=== PATIENT | female | born 1995 | race Caucasian/White ===

== ENCOUNTER 2017-04-14 16:57 | Emergency (ER) | payer SELFPAY ==
[~2017-04-14] VITALS: Ht 160 cm; Wt 101.0 kg
[~2017-04-14 16:57] MED LIST: AUGM875T PO; IBUP800T23 PO; OCUF0.3D OD
[2017-04-14 17:00] VITALS: BP 136/70; PULSE 110; RESP 18; TEMP 98.6; O2SAT 97
[2017-04-14] MEDS ORDERED: AMOX500C PO (18:06)
--- NOTE | 2017-04-14 18:07 | PD ---
HPI Chief Complaint: ENT Complaint Time Seen by Provider: 18:00 Travel History International Travel<30 days: No Contact w/Intl Traveler<30days: No Traveled to known affect area: No History of Present Illness HPI 21-year-old female presents emergency department for evaluation of left ear pain 3 weeks. Patient reports associated sore throat and nasal congestion. She denies headache, fever or chills. She reports previous history of ear infections this child. Symptom severity is moderate. No aggravating or alleviating factors. Pain scale 5/10 PFSH Past Medical History Hx Anticoagulant Therapy: No Heart Rhythm Problems: Yes (murmur) Cardiovascular Problems: No Chemotherapy: No Cerebrovascular Accident: No Diabetes: No Diminished Hearing: No Respiratory: No Immunizations Current: No Influenza Vaccination: No ?: Not LMP: IRREGULAR/ 2 MONTHS AGO Past Surgical History Surgical History: No Previous Surgery Hysterectomy: No Oral Surgery: Yes (wisdom teeth removed) Social History Alcohol Use: No Tobacco Use: Yes Substance Use: No Allergies-Medications (Allergen,Severity, Reaction): Coded Allergies: No Known Allergies (Unverified , 04/14/17) Reported Meds & Prescriptions Reported Meds & Active Scripts Active No Active Prescriptions or Reported Medications Review of Systems Except as stated in HPI: all other systems reviewed are Neg Physical Exam Narrative GENERAL: Well-nourished, well-developed patient. SKIN: Focused skin assessment warm/dry. HEAD: Normocephalic. EYES: No scleral icterus. No injection or drainage. EARS: Left TM erythema, bulging, loss of landmarks. Canal is without swelling, erythema or exudate. No perforation. NECK: Supple, trachea midline. No JVD or lymphadenopathy. No meningismus THROAT: Posterior pharyngeal erythema. Mild tonsillar swelling without exudate. Uvula is midline. CARDIOVASCULAR: Regular rate and rhythm without murmurs, gallops, or rubs. RESPIRATORY: Breath sounds equal bilaterally. No accessory muscle use. GASTROINTESTINAL: Abdomen soft, non-tender, nondistended. MUSCULOSKELETAL: No cyanosis, or edema. BACK: Nontender without obvious deformity. No CVA tenderness. Data Data Last Documented VS Vital Signs Date Time Temp Pulse Resp B/P (MAP) Pulse Ox O2 Delivery O2 Flow Rate FiO2 04/14/17 17:00 98.6 110 18 136/70 (92) 97 MDM Medical Decision Making Medical Screen Exam Complete: Yes Emergency Medical Condition: Yes Differential Diagnosis Otitis media, tonsillitis, URI Narrative Course 21-year-old female with chief complaint of left ear pain 3 weeks. Patient also has some subjective URI type symptoms. On exam patient is noted to have a left TM erythema, bulging, loss of landmarks. Patient be treated for acute otitis media. Diagnosis Primary Impression: Otitis media Qualified Codes: H66.90 - Otitis media, unspecified, unspecified ear Referrals: [facility] Additional Instructions: Take the antibiotics as prescribed. Stay well hydrated by drinking plenty of fluids. Take [id number] Motrin or Tylenol as needed for pain. Follow-up the primary doctor. Scripts Amoxicillin (Amoxicillin) 500 Mg Cap 500 MG PO TID for Infection, #30 CAP 0 Refills Prov: Morena Samuels 04/14/17 Disposition: 01 DISCHARGE HOME Condition: Stable Morena Samuels Apr 14, 2017 18:07
== END 2017-04-14 18:22 | disposition home or self-care (01) ==
LOC: PHEFT 16:57
DX: H66.92 Otitis media, unspecified, left ear (principal); Z72.0 Tobacco use
CPT/HCPCS: 99283

== ENCOUNTER 2017-04-23 17:37 | Emergency (ER) | payer SELFPAY ==
[~2017-04-23] VITALS: Ht 160 cm; Wt 102.8 kg
[~2017-04-23 17:37] MED LIST changes: +AMOX500C PO; -AUGM875T PO; -IBUP800T23 PO; -OCUF0.3D OD
[2017-04-23 17:43] VITALS: BP 136/82; PULSE 109; RESP 16; TEMP 98.5; O2SAT 98
[2017-04-23] MEDS ORDERED: BENZ100 PO (18:07)
[2017-04-23] MEDS ORDERED: AZIT250T3 PO (18:07)
--- NOTE | 2017-04-23 18:07 | PD ---
HPI Chief Complaint: Cold / Flu Symptoms Time Seen by Provider: 17:49 Travel History International Travel<30 days: No Contact w/Intl Traveler<30days: No Traveled to known affect area: No History of Present Illness HPI 21-year-old female presents emergency department for evaluation of left ear pain and productive cough 2 weeks. Patient was seen on the and diagnosed with acute otitis media. She was discharged home on amoxicillin. She reports she has had continued pain with a left ear despite being compliant with medications. She reports now that she has a productive cough and some subjective fevers. She reports the cough is unrelieved by [id number] medications. Symptoms severity mild. No aggravating or alleviating factors. PFSH Past Medical History Medical History: Denies Significant Hx Hx Anticoagulant Therapy: No Heart Rhythm Problems: Yes (murmur) Cardiovascular Problems: No Chemotherapy: No Cerebrovascular Accident: No Diabetes: No Diminished Hearing: No Respiratory: No Immunizations Current: No Tetanus Vaccination: < 5 Years Influenza Vaccination: No ?: Not LMP: NOW Past Surgical History Surgical History: No Previous Surgery Hysterectomy: No Oral Surgery: Yes (wisdom teeth removed) Social History Alcohol Use: No Tobacco Use: Yes (08/03 PPD) Substance Use: No Allergies-Medications (Allergen,Severity, Reaction): Coded Allergies: No Known Allergies (Unverified , 04/23/17) Reported Meds & Prescriptions Reported Meds & Active Scripts Active Amoxicillin 500 Mg Cap 500 Mg PO TID Review of Systems Except as stated in HPI: all other systems reviewed are Neg HENT: Positive: Earache Respiratory: Positive: Cough Physical Exam Narrative GENERAL: Well-nourished, well-developed patient. SKIN: Focused skin assessment warm/dry. HEAD: Normocephalic. EYES: No scleral icterus. No injection or drainage. EAR: Left TM erythema, bulging, loss of landmark. No canal swelling or drainage. No mastoid tenderness. NECK: Supple, trachea midline. No JVD or lymphadenopathy. No meningismus. CARDIOVASCULAR: Regular rate and rhythm without murmurs, gallops, or rubs. RESPIRATORY: Breath sounds equal bilaterally. No accessory muscle use. Questionable rhonchi left upper lobe GASTROINTESTINAL: Abdomen soft, non-tender, nondistended. Data Data Last Documented VS Vital Signs Date Time Temp Pulse Resp B/P (MAP) Pulse Ox O2 Delivery O2 Flow Rate FiO2 04/23/17 17:43 98.5 109 16 136/82 (100) 98 MDM Medical Decision Making Medical Screen Exam Complete: Yes Emergency Medical Condition: Yes Differential Diagnosis Otitis media, this externa, bronchitis, pneumonia, influenza Narrative Course 21-year-old female with chief complaint of left ear pain and productive cough 2 weeks. On exam patient has left TM erythema, bulging, loss of landmarks consistent with otitis media. She is reporting a productive cough. There is questionable rhonchi in the left upper lobe. Patient's vital signs are stable she was mildly tachycardic in triage although her heart rate slowed to the low 90s once in the room. She is well-appearing. Patient be treated with azithromycin and Tessalon Perles. She was given instructions to follow-up with the [facility]. Patient verbalizes understanding and agrees to plan Diagnosis Primary Impression: Otitis media Qualified Codes: H66.90 - Otitis media, unspecified, unspecified ear Additional Impression: Bronchitis Referrals: Primary Care Physician Additional Instructions: Take the medications as prescribed. Take [id number] Tylenol or Motrin as needed for pain. To up with the [facility]. Scripts Azithromycin (Azithromycin) 250 Mg Tab 250 MG PO DIRECTED for Infection, #6 TAB 0 Refills Take 2 tabs (500 mg) on day 1 then 1 tab daily x 4 days. Prov: Morena Samuels 04/23/17 Benzonatate (Tessalon Perles) 100 Mg Cap 200 MG PO TID Y for COUGH for 5 Days, CAP 0 Refills Prov: Morena Samuels 04/23/17 Disposition: 01 DISCHARGE HOME Condition: Stable Morena Samuels Apr 23, 2017 18:07
== END 2017-04-23 18:47 | disposition home or self-care (01) ==
LOC: PHEFT 17:37
DX: H66.90 Otitis media, unspecified, unspecified ear (principal); J40 Bronchitis, not specified as acute or chronic; R01.1 Cardiac murmur, unspecified; F17.210 Nicotine dependence, cigarettes, uncomplicated
CPT/HCPCS: 99284